=== PATIENT | female | born 1985 | race Caucasian/White ===

== ENCOUNTER 2021-02-08 10:36 | Emergency (ER) | payer OTHER ==
[2021-02-08 11:26] LABS: BASOPHIL 0.3 % (0-2); EOSINOPHIL 2.1 % (0-5); HGB 13.9 g/dl (12.5-16.0); LYMPHOCYTE 30.2 % (15-48); MCH 27.1 pg (25.0-31.0); MCHC 32.3 g/dL (32.0-36.0); MCV 83.8 fL (78.0-100.0); MONOCYTE 4.8 % (0-12); MPV 12.8 fL (6.0-9.5); NEUTROPHIL 62.4 % (41-80); NRBC 0; PLT 208 K/uL (150-400); RBC 5.13 M/uL (4.20-5.40); RDW 12.7 % (11.5-14.0)
[2021-02-08 11:30] LABS: BILIRUBIN NEGATIVE (NEGATIVE); BLOOD 2+ Ery/uL (NEGATIVE); CLARITY CLEAR (CLEAR); COLOR YELLOW (YELLOW); GLUCOSE (U) NORMAL (NORMAL); LEUKOCYTES NEGATIVE Leu/uL (NEGATIVE); NITRITE NEGATIVE (NEGATIVE); PROTEIN NEGATIVE (NEGATIVE); SPECIFIC GRAVITY <=1.005 (1.001-1.030); UROBILINOGEN 0.2 mg/dL (0.2-1.0)
[2021-02-08 11:40] LABS: BACTERIA TRACE
[2021-02-08 11:44] LABS: CREATININE 0.69 mg/dL (0.51-0.95); POTASSIUM 4.1 mmol/L (3.5-5.1)
[2021-02-08] MEDS ORDERED: CYCLOBENZAPRINE10 MG PO (12:40)
== END 2021-02-08 12:49 | disposition home or self-care (01) ==
LOC: FER 10:36
PROVIDERS: Emergency Medicine
DX: M54.5 Low back pain (principal); R91.1 Solitary pulmonary nodule; R11.0 Nausea; F17.210 Nicotine dependence, cigarettes, uncomplicated; Z87.442 Personal history of urinary calculi; Z88.1 Allergy status to other antibiotic agents; Z88.5 Allergy status to narcotic agent; Z88.6 Allergy status to analgesic agent; Z88.8 Allergy status to other drugs, medicaments and biological substances
CPT/HCPCS: 36415; 80048; 81001; 85025